=== PATIENT | male | born 1975 ===

== ENCOUNTER 2018-11-22 00:33 | Emergency (ER) | payer SELFPAY ==
[2018-11-22 00:34] VITALS: BMI 31.2
--- NOTE | 2018-11-22 01:33 | ED PDOC ---
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 He reports that he is currently on no medications, besides the Xanax he takes on occasion for anxiety, and he is healthy. He states that tonight 15 minutes after he finished his meal, he developed chest pain that is worse with breathing and associated with nausea and diaphoresis. Patient also reports he felt the need to belch and was able to self induce without relief. He also took a Xanax without relief. Denies vomiting and offers no other complaints. ' PMD: none Past Medical History Reviewed: Historical Data, Nursing Documentation, Vital Signs Vital Signs: Last Vital Signs Temp 97.4 F L 11/22/18 00:46 Pulse 76 11/22/18 00:46 Resp 17 11/22/18 00:46 BP 155/88 H 11/22/18 00:46 Pulse Ox 99 11/22/18 00:46 - Medical History PMH: Anxiety Denies: Chronic Kidney Disease - Surgical History Surgical History: No Surg Hx - Family History Family History: States: Unknown Family Hx - Social History Drugs: Cannabis - Immunization History Hx Tetanus Toxoid Vaccination: Yes - Home Medications Home Medications: Ambulatory Orders Medication Instructions Recorded Amoxicillin/Potassium Clav 1 tab PO Q12 #13 tablet 12/31/15 [Augmentin 875-125 Tablet] ALPRAZolam [Xanax] 1 mg PO DAILY 01/01/16 Doxycycline Hyclate 100 mg PO BID #30 capsule 01/07/16 Vancomycin [Vancomycin HCl] 2 gm IV DAILY #0 vial 01/07/16 - Allergies Allergies/Adverse Reactions: Allergies Allergy/AdvReac Type Severity Reaction Status Date / Time doxycycline Allergy Intermediate HEADACHE Verified 11/22/18 00:48 Review of Systems ROS Statement: Except As Marked, All Systems Reviewed And Found Negative Cardiovascular: Positive for: Chest Pain Gastrointestinal: Positive for: Nausea. Negative for: Vomiting Physical Exam - Reviewed Nursing Documentation Reviewed: Yes Vital Signs Reviewed: Yes - Physical Exam Appears: Positive for: Non-toxic, No Acute Distress Head Exam: Positive for: ATRAUMATIC, NORMAL INSPECTION, NORMOCEPHALIC Skin: Positive for: Normal Color, Warm, Dry Eye Exam: Positive for: EOMI, Normal appearance, PERRL Neck: Positive for: Normal, Painless ROM, Supple Cardiovascular/Chest: Positive for: Regular Rate, Rhythm. Negative for: Murmur Respiratory: Positive for: Normal Breath Sounds. Negative for: Respiratory Distress Gastrointestinal/Abdominal: Positive for: Normal Exam, Soft. Negative for: Tenderness Back: Positive for: Normal Inspection. Negative for: L CVA Tenderness, R CVA Tenderness Extremity: Positive for: Normal ROM. Negative for: Deformity Neurological/Psych: Positive for: Awake, Alert, Normal Tone, Oriented. Negative for: Motor/Sensory Deficits - Laboratory Results Result Diagrams: 11/22/18 01:32 11/22/18 01:40 - ECG O2 Sat by Pulse Oximetry: 99 (RA) Pulse Ox Interpretation: Normal Medical Decision Making Medical Decision Makin:08 Impression: 43 year old male with chest pain Initial Plan: --CTA Chest --Alcohol --UDS --CBC --CMP --Troponin --Lipase --D Dimer --CXR --Toradol 30 mg IM --Pepcid 20 mg IVP Scribe Attestation: Documented by Sarah Maher, acting as a scribe for Jesus Lomas MD. Provider Scribe Attestation: All medical record entries made by the Scribe were at my direction and personally dictated by me. I have reviewed the chart and agree that the record accurately reflects my personal performance of the history, physical exam, medical decision making, and the department course for this patient. I have also personally directed, reviewed, and agree with the discharge instructions and disposition. Disposition - Clinical Impression Clinical Impression: Atypical chest pain - Disposition Referrals: [facility] [Outside] Disposition Time: 02:00 Condition: STABLE Instructions: Chest Pain That Is Not Caused by the Heart (DC) Forms: [employer] (Georgian)
[2018-11-22 02:00] LABS: BASO # 0.1 K/uL (0.0-0.2); BASO % 1.1 % (0.0-2.0); EOS # 0.2 K/uL (0.0-0.7); EOS % 1.6 % (0.0-4.0); LYMPH # 2.8 K/uL (1.0-4.3); LYMPH % 28.7 % (20.0-40.0); MEAN CELL VOLUME 88.8 fl (80.0-94.0); MEAN CORPUSCULAR HEMOGLOBIN 29.8 pg (27.0-31.0); MEAN CORPUSCULAR HGB CONC 33.6 g/dL (33.0-37.0); MEAN PLATELET VOLUME 10.2 fl (7.2-11.7); MONO # 0.9 K/uL (0.0-0.8); MONO % 8.6 % (0.0-10.0); NEUT # 5.9 K/uL (1.8-7.0); NRBC % 0.1 % (0.0-0.0); RBC 5.05 Mil/uL (4.40-5.90); RED CELL DISTRIBUTION WIDTH 12.9 % (11.5-14.5); WHITE BLOOD COUNT 9.9 K/uL (4.8-10.8)
[2018-11-22 02:14] LABS: ALB/GLOB RATIO 1.5 (1.0-2.1); ALBUMIN 4.2 g/dL (3.5-5.0); ALT/SGPT 64 U/L (21-72); AST/SGOT 34 U/L (17-59); BLOOD UREA NITROGEN 16 mg/dl (9-20); CALCIUM 9.4 mg/dL (8.4-10.2); GFR NON-AFRICAN AMERICAN > 60; LIPASE 29 U/L (23-300)
[2018-11-22] MEDS ORDERED: Sodium Chloride 0.9% 50 ML IV ONE (02:28)
[2018-11-22] MEDS ORDERED: Iodixanol 320 MG/ML 100 ML BOTTLE IV ONE (02:29)
[2018-11-22 03:21] LABS: BARBITURATES, UR NEGATIVE (NEGATIVE); BENZODIAZEPINES, UR POSITIVE (NEGATIVE); OPIATES, UR NEGATIVE (NEGATIVE); PHENCYCLIDINE, UR NEGATIVE (NEGATIVE)
[2018-11-22 05:01] VITALS: BP 121/75; PULSE 65; RESP 18; TEMP 97.9
[2018-11-22 06:38] VITALS: O2SAT 99
--- NOTE | 2018-11-22 08:20 | RAD ---
Date of service: 11/22/2018 HISTORY: admit COMPARISON: 12/31/2015 TECHNIQUE: Chest PA and lateral FINDINGS: LUNGS: No active pulmonary disease. PLEURA: No significant pleural effusion identified. No pneumothorax apparent. CARDIOVASCULAR: No aortic atherosclerotic calcification present. Normal cardiac size. No pulmonary vascular congestion. OSSEOUS STRUCTURES: No significant abnormalities. VISUALIZED UPPER ABDOMEN: Normal. OTHER FINDINGS: None. IMPRESSION: No active disease. No interval pathology noted.
--- NOTE | 2018-11-22 10:45 | CT ---
Date of service: 11/22/2018 PROCEDURE: CT Chest with contrast (Pulmonary Angiogram) HISTORY: chest pain r/o PE COMPARISON: 12/31/2015 TECHNIQUE: Axial computed tomography images were obtained of the chest in the pulmonary arterial phase of enhancement. Coronal and sagittal reformatted images were created and reviewed. Intravenous contrast dose: 95 mL Visipaque 320 Radiation dose: Total exam DLP = 378.83 mGy-cm. This CT exam was performed using one or more of the following dose reduction techniques: Automated exposure control, adjustment of the mA and/or kV according to patient size, and/or use of iterative reconstruction technique. FINDINGS: PULMONARY ARTERIES: Unremarkable. No pulmonary embolism. AORTA: No acute findings. No thoracic aortic aneurysm. No aortic atherosclerotic calcification or mural plaque present. LUNGS: Unremarkable. No nodule, mass or pulmonary consolidation. PLEURAL SPACES: Unremarkable. No effusion or pneumothorax. HEART: Unremarkable. No cardiomegaly. No significant pericardial effusion. LYMPH NODES: No lymphadenopathy. BONES, CHEST WALL: Unremarkable. No fracture or destructive lesion OTHER FINDINGS: Diffuse fatty infiltration of the liver suggested. IMPRESSION: Unremarkable CT pulmonary angiogram. No pulmonary embolus. Concordant results (preliminary interpretation) provided by [facility]. Incidentally suggested is diffuse fatty infiltration of the liver.
== END 2018-11-22 05:05 | disposition home or self-care (01) ==
LOC: H.ER 00:33
DX: R07.89 Other chest pain (principal); F41.9 Anxiety disorder, unspecified
CPT/HCPCS: 71046; 71275; 80053; 83690; 84484; 85025; 85378; 99285; G0480; J1885; Q9967